=== PATIENT | male | born 1995 | race Caucasian/White ===

== ENCOUNTER 2019-08-23 21:56 | Observation (INO) | payer SELFPAY ==
[~2019-08-23] VITALS: Ht 177.8 cm; Wt 81.6 kg
--- NOTE | 2019-08-23 23:22 | PHYS DOC ---
Past Medical History Past Medical History: Unknown Alcohol Use: Heavy Drug Use: Other Social History Narrative: DENIES DRUG USE; SUSPECTED CURRENTLY UNDER INFLUENCE OF DRUGS/ETOH Adult General Chief Complaint Chief Complaint: WEAKNESS/GENERALIZED HPI HPI 24-year-old male presents to the ED via EMS initial complaints of found on the floor at the [facility]. Per EMS patient was oriented at that time. He reported having some beer prior to their arrival. Patient is sleepy on exam difficulty answering some questions. Blood sugar was 70 per EMS. Initially patient declined transport however sister states she wanted him transported for further evaluation. Patient does not answer my questions on examination. He states he did not drink any beer, has not taken any other drugs. Unable to complete reviews of systems due to altered mental status Review of Systems Review of Systems Unable to complete ROS 12/25 patient's mental status All other systems were reviewed and found to be within normal limits, except as documented in this note. Allergies Allergies Allergies Coded Allergies Type Severity Reaction Last Updated Verified No Known Drug Allergies 08/23/19 No Physical Exam Physical Exam Constitutional: Well developed, well nourished, no acute distress, non-toxic appearance. [] HENT: Normocephalic, atraumatic, bilateral external ears normal, oropharynx moist, no oral exudates, nose normal. [] Eyes: PERRLA, EOMI, conjunctiva normal, no discharge. [] Cardiovascular:Heart rate regular rhythm, no murmur [] Lungs & Thorax: Bilateral breath sounds clear to auscultation [] Abdomen: Bowel sounds normal, soft, no tenderness, no masses, no pulsatile masses. [] Skin: Warm, dry, no erythema, no rash. [] Extremities: No tenderness, no cyanosis, no edema. [] Neurologic: Alert and oriented X person/place, no focal deficits noted. [] Psychologic: flat affect, abnormal judgement Current Patient Data Vital Signs Vital Signs Date Time Temp Pulse Resp B/P (MAP) Pulse Ox O2 Delivery O2 Flow Rate FiO2 08/23/19 22:00 95.7 63 18 125/74 (91) 100 Room Air 95.7 EKG EKG [] Radiology/Procedures Radiology/Procedures [] Course & Med Decision Making Course & Med Decision Making Pertinent Labs and Imaging studies reviewed. (See chart for details) []24-year-old male presents to the ED via EMS initial complaints of found on the floor at the [facility]. Per EMS patient was oriented at that time. He reported having some beer prior to their arrival. Patient is sleepy on exam difficulty answering some questions. Blood sugar was 70 per EMS. Initially patient declined transport however sister states she wanted him transported for further evaluation. Patient does not answer my questions on examination. He states he did not drink any beer, has not taken any other drugs. Unable to complete reviews of systems due to altered mental status Dragon Disclaimer Dragon Disclaimer This electronic medical record was generated, in whole or in part, using a voice recognition dictation system. Departure Departure Referrals: NO PCP (PCP) GENEVA SOTO MD Aug 23, 2019 23:22
[2019-08-23 23:39] LABS: BASO % 0 % (0-3); EOS # 0.1 x10^3/uL (0.0-0.7); EOS % 1 % (0-3); HEMATOCRIT 46.7 % (39.0-53.0); HEMOGLOBIN 15.9 g/dL (13.0-17.5); LYMPH % 16 % (24-48); MEAN CORPUSCULAR HEMOGLOBIN 31 pg (25-35); MEAN CORPUSCULAR HGB CONC 34 g/dL (31-37); MEAN CORPUSCULAR VOLUME 90 fL (79-100); MONO # 0.5 x10^3/uL (0.0-1.1); MONO % 8 % (0-9); NEUT # 4.5 x10^3/uL (1.8-7.7); NEUT % 75 % (31-73); PLATELET COUNT 193 x10^3/uL (140-400); RED CELL DISTRIBUTION WIDTH 13.7 % (11.5-14.5); WHITE BLOOD COUNT 6.1 x10^3/uL (4.0-11.0)
[2019-08-23 23:48] LABS: CALCIUM 9.4 mg/dL (8.5-10.1); GFR 92.6; POTASSIUM 3.4 mmol/L (3.5-5.1)
--- NOTE | 2019-08-23 23:49 | PHYS DOC ---
Past Medical History Past Medical History: Unknown Alcohol Use: Heavy Drug Use: Other Social History Narrative: DENIES DRUG USE; SUSPECTED CURRENTLY UNDER INFLUENCE OF DRUGS/ETOH Adult General Chief Complaint Chief Complaint: WEAKNESS/GENERALIZED HPI HPI 21-year-old male presents to the emergency department with complaints of left abdominal pain. She describes off and on, she as well describes dizziness, nausea, vomiting or diarrhea, she does complain of dysuria as well as frequency. She is febrile here. Temperature is 100.8. Patient denies any headache, chest pain, shortness of breath. Nothing makes her symptoms worse, nothing makes her symptoms better. Review of Systems Review of Systems Constitutional: Chills, fever Eyes: Denies change in visual acuity, redness, or eye pain [] HENT: Denies nasal congestion or sore throat [] Respiratory: Denies cough or shortness of breath [] Cardiovascular: No additional information not addressed in HPI [] GI: Positive abdominal pain, nausea, vomiting, no bloody stools or diarrhea [] : Positive frequency, dysuria Musculoskeletal: Denies back pain or joint pain [] Integument: Denies rash or skin lesions [] Neurologic: Denies headache, focal weakness or sensory changes [] All other systems were reviewed and found to be within normal limits, except as documented in this note. Allergies Allergies Allergies Coded Allergies Type Severity Reaction Last Updated Verified No Known Drug Allergies 08/23/19 No Physical Exam Physical Exam Constitutional: Well developed, well nourished, mild distress due to pain, non- toxic appearance. [] HENT: Normocephalic, atraumatic, bilateral external ears normal, oropharynx moist, no oral exudates, nose normal. [] Eyes: PERRLA, EOMI, conjunctiva normal, no discharge. [] Neck: Normal range of motion, no tenderness, supple, no stridor. [] Cardiovascular: Tachycardia Lungs & Thorax: Bilateral breath sounds clear to auscultation [] Abdomen: Tender to palpation left lower abdomen, no masses, no pulsatile masses. [] Skin: Warm, dry, no erythema, no rash. [] Back: No tenderness, no CVA tenderness. [] Extremities: No tenderness, no cyanosis, no edema. [] Neurologic: Alert and oriented X 3, no focal deficits noted. [] Psychologic: Affect normal, judgement normal, mood normal. [] Current Patient Data Vital Signs Vital Signs Date Time Temp Pulse Resp B/P (MAP) Pulse Ox O2 Delivery O2 Flow Rate FiO2 08/23/19 22:00 95.7 63 18 125/74 (91) 100 Room Air 95.7 Lab Values Laboratory Tests Test 08/23/19 23:23 08/23/19 23:30 Glucose (Fingerstick) 111 mg/dL (70-99) H White Blood Count 6.1 x10^3/uL (4.0-11.0) Red Blood Count 5.20 x10^6/uL (4.30-5.70) Hemoglobin 15.9 g/dL (13.0-17.5) Hematocrit 46.7 % (39.0-53.0) Mean Corpuscular Volume 90 fL (79-100) Mean Corpuscular Hemoglobin 31 pg (25-35) Mean Corpuscular Hemoglobin Concent 34 g/dL (31-37) Red Cell Distribution Width 13.7 % (11.5-14.5) Platelet Count 193 x10^3/uL (140-400) Neutrophils (%) (Auto) 75 % (31-73) H Lymphocytes (%) (Auto) 16 % (24-48) L Monocytes (%) (Auto) 8 % (0-9) Eosinophils (%) (Auto) 1 % (0-3) Basophils (%) (Auto) 0 % (0-3) Neutrophils # (Auto) 4.5 x10^3/uL (1.8-7.7) Lymphocytes # (Auto) 1.0 x10^3/uL (1.0-4.8) Monocytes # (Auto) 0.5 x10^3/uL (0.0-1.1) Eosinophils # (Auto) 0.1 x10^3/uL (0.0-0.7) Basophils # (Auto) 0.0 x10^3/uL (0.0-0.2) Sodium Level 143 mmol/L (136-145) Potassium Level 3.4 mmol/L (3.5-5.1) L Chloride Level 101 mmol/L (98-107) Carbon Dioxide Level 31 mmol/L (21-32) Anion Gap 11 (6-14) Blood Urea Nitrogen 18 mg/dL (8-26) Creatinine 1.0 mg/dL (0.7-1.3) Estimated GFR (Cockcroft-Gault) 92.6 BUN/Creatinine Ratio 18 (6-20) Glucose Level 99 mg/dL (70-99) Calcium Level 9.4 mg/dL (8.5-10.1) Total Bilirubin Pending Aspartate Amino Transferase (AST) Pending Alanine Aminotransferase (ALT) Pending Alkaline Phosphatase Pending Total Protein Pending Albumin Pending Albumin/Globulin Ratio Pending Laboratory Tests 08/23/19 23:30 Laboratory Tests 08/23/19 23:30 EKG EKG [] Radiology/Procedures Radiology/Procedures [] Course & Med Decision Making Course & Med Decision Making Pertinent Labs and Imaging studies reviewed. (See chart for details) []21-year-old male presents to the emergency department with complaints of left abdominal pain. She describes off and on, she as well describes dizziness, nausea, vomiting or diarrhea, she does complain of dysuria as well as frequency. She is febrile here. Temperature is 100.8. Patient denies any headache, chest pain, shortness of breath. Nothing makes her symptoms worse, nothing makes her symptoms better. Labs reviewed as 20,000, UTI evident on urinalysis. Urine CG is negative. CT scan pending to rule out evidence of pyelonephritis. Dragon Disclaimer Dragon Disclaimer This electronic medical record was generated, in whole or in part, using a voice recognition dictation system. Departure Departure Referrals: NO PCP (PCP) GENEVA SOTO MD Aug 23, 2019 23:49
[2019-08-23 23:52] LABS: ACETAMIN < 2 mcg/ml (10-30); ETHANOL < 10 mg/dL (0-10); SALIC < 2.8 mg/dL (2.8-20.0)
[2019-08-23 23:53] LABS: ALBUMIN 4.4 g/dL (3.4-5.0); ALBUMIN/GLOBULIN RATIO 1.3 (1.0-1.7); TOTAL PROTEIN 7.9 g/dL (6.4-8.2)
--- NOTE | 2019-08-23 23:54 | PHYS DOC ---
Past Medical History Past Medical History: Unknown Alcohol Use: Heavy Drug Use: Other Social History Narrative: DENIES DRUG USE; SUSPECTED CURRENTLY UNDER INFLUENCE OF DRUGS/ETOH Adult General Chief Complaint Chief Complaint: WEAKNESS/GENERALIZED HPI HPI 24-year-old male presents to the ED via EMS initial complaints of found on the floor at the [facility]. Per EMS patient was oriented at that time. He reported having some beer prior to their arrival. Patient is sleepy on exam difficulty answering some questions. Blood sugar was 70 per EMS. Initially patient declined transport however sister states she wanted him transported for further evaluation. Patient does not answer my questions on examination. He states he did not drink any beer, has not taken any other drugs. Unable to complete reviews of systems due to altered mental status Review of Systems Review of Systems Unable to complete ROS / patient's mental status All other systems were reviewed and found to be within normal limits, except as documented in this note. Allergies Allergies Allergies Coded Allergies Type Severity Reaction Last Updated Verified No Known Drug Allergies 08/23/19 No Physical Exam Physical Exam Constitutional: Well developed, well nourished, no acute distress, non-toxic appearance. [] HENT: Normocephalic, atraumatic, bilateral external ears normal, oropharynx moist, no oral exudates, nose normal. [] Eyes: PERRLA, EOMI, conjunctiva normal, no discharge. [] Cardiovascular:Heart rate regular rhythm, no murmur [] Lungs & Thorax: Bilateral breath sounds clear to auscultation [] Abdomen: Bowel sounds normal, soft, no tenderness, no masses, no pulsatile masses. [] Skin: Warm, dry, no erythema, no rash. [] Extremities: No tenderness, no cyanosis, no edema. [] Neurologic: Alert and oriented X person/place, no focal deficits noted. [] Psychologic: flat affect, abnormal judgement Current Patient Data Vital Signs Vital Signs Date Time Temp Pulse Resp B/P (MAP) Pulse Ox O2 Delivery O2 Flow Rate FiO2 08/23/19 22:00 95.7 63 18 125/74 (91) 100 Room Air 95.7 Lab Values Laboratory Tests Test 08/23/19 23:23 08/23/19 23:30 08/23/19 23:40 Glucose (Fingerstick) 111 mg/dL (70-99) H White Blood Count 6.1 x10^3/uL (4.0-11.0) Red Blood Count 5.20 x10^6/uL (4.30-5.70) Hemoglobin 15.9 g/dL (13.0-17.5) Hematocrit 46.7 % (39.0-53.0) Mean Corpuscular Volume 90 fL (79-100) Mean Corpuscular Hemoglobin 31 pg (25-35) Mean Corpuscular Hemoglobin Concent 34 g/dL (31-37) Red Cell Distribution Width 13.7 % (11.5-14.5) Platelet Count 193 x10^3/uL (140-400) Neutrophils (%) (Auto) 75 % (31-73) H Lymphocytes (%) (Auto) 16 % (24-48) L Monocytes (%) (Auto) 8 % (0-9) Eosinophils (%) (Auto) 1 % (0-3) Basophils (%) (Auto) 0 % (0-3) Neutrophils # (Auto) 4.5 x10^3/uL (1.8-7.7) Lymphocytes # (Auto) 1.0 x10^3/uL (1.0-4.8) Monocytes # (Auto) 0.5 x10^3/uL (0.0-1.1) Eosinophils # (Auto) 0.1 x10^3/uL (0.0-0.7) Basophils # (Auto) 0.0 x10^3/uL (0.0-0.2) Sodium Level 143 mmol/L (136-145) Potassium Level 3.4 mmol/L (3.5-5.1) L Chloride Level 101 mmol/L (98-107) Carbon Dioxide Level 31 mmol/L (21-32) Anion Gap 11 (6-14) Blood Urea Nitrogen 18 mg/dL (8-26) Creatinine 1.0 mg/dL (0.7-1.3) Estimated GFR (Cockcroft-Gault) 92.6 BUN/Creatinine Ratio 18 (6-20) Glucose Level 99 mg/dL (70-99) Calcium Level 9.4 mg/dL (8.5-10.1) Total Bilirubin 1.0 mg/dL (0.2-1.0) Aspartate Amino Transferase (AST) 24 U/L (15-37) Alanine Aminotransferase (ALT) 24 U/L (16-63) Alkaline Phosphatase 60 U/L (46-116) Total Protein 7.9 g/dL (6.4-8.2) Albumin 4.4 g/dL (3.4-5.0) Albumin/Globulin Ratio 1.3 (1.0-1.7) Salicylates Level < 2.8 mg/dL (2.8-20.0) L Salicylate Last Dose Date Unk Salicylate Last Dose Time Unk Acetaminophen Level < 2 mcg/ml (10-30) L Acetaminophen Last Dose Date Unk Acetaminophen Last Dose Time Unk Ethyl Alcohol Level < 10 mg/dL (0-10) Urine Opiates Screen Neg (NEG) Urine Methadone Screen Neg (NEG) Urine Barbiturates Neg (NEG) Urine Phencyclidine Screen Neg (NEG) Urine Amphetamine/Methamphetamine Pos (NEG) Urine Benzodiazepines Screen Pos (NEG) Urine Cocaine Screen Neg (NEG) Urine Cannabinoids Screen Pos (NEG) Urine Ethyl Alcohol Neg (NEG) Laboratory Tests 08/23/19 23:30 Laboratory Tests 08/23/19 23:30 EKG EKG EKG reviewed, bradycardia heart rate 45, no acute ST or T wave change appreciated, no STEMI, non-urgent[] Interpretation Time: Interpretation 0010 Radiology/Procedures Radiology/Procedures [] Course & Med Decision Making Course & Med Decision Making Pertinent Labs and Imaging studies reviewed. (See chart for details) []24-year-old male presents to the ED via EMS initial complaints of found on the floor at the [facility]. Per EMS patient was oriented at that time. He reported having some beer prior to their arrival. Patient is sleepy on exam difficulty answering some questions. Blood sugar was 70 per EMS. Initially patient declined transport however sister states she wanted him transported for further evaluation. Patient does not answer my questions on examination. He states he did not drink any beer, has not taken any other drugs. Unable to complete reviews of systems due to altered mental status. Labs reviewed, white blood cell count 6.1, potassium of 3.4. UDS positive for meth/benzo/THC. Patient remains drowsy, inability to stay awake. Given urine drug screen will plan for observation for an intentional overdose, bradycardia and altered mental status. Dragon Disclaimer Dragon Disclaimer This electronic medical record was generated, in whole or in part, using a voice recognition dictation system. Departure Departure Impression: Primary Impression: Altered mental status Additional Impressions: Purposeful non-suicidal drug ingestion Bradycardia Disposition: 09 ADMITTED INPATIENT Admitting Physician: ARUNA Condition: STABLE Referrals: NO PCP (PCP) Problem Qualifiers GENEVA SOTO MD Aug 23, 2019 23:54
[2019-08-23 23:55] LABS: BARBITURATES NEG (NEG); BENZODIAZEPINES POS (NEG); CANNABINOIDS POS (NEG); COCAINE NEG (NEG); METHADONE NEG (NEG); OPIATES NEG (NEG); PHENCYCLIDINE NEG (NEG)
[2019-08-23 23:57] LABS: AMPHETAMINE/METHAMPHETAMINE POS (NEG)
[2019-08-24] MEDS ORDERED: IV NORMAL SALINE 1000ML BAG 1,000 ML IV ONE (00:30)
[2019-08-24] MEDS ORDERED: ONDANSETRON PF 4 MG/2 ML VIAL. IV PRN (00:45)
[2019-08-24 01:54] VITALS: BP 126/59
--- NOTE | 2019-08-24 02:26 | NUR ---
Pt arrived to floor at 0210 - rolled into room stating that wanted to leave. RN explained to pt that needed to sign paperwork stating that was aware of dr advice. Pt stated would sign. IV d/c'ed per JENN Suggs. PT d/c'ed at 0211. Escorted out by security and RN - pt ambulatory.
--- NOTE | 2019-08-24 07:03 | EKG ---
[facility] [address] [place] [address] Test Date: 2019-08-24 Test Time: 00:07:33 Pat Name: DAGOBERTO ROGERS Department: Room: 648 1 Gender: M Lens Blocker: : 1995 Requested By: GENEVA SOTO Order Number: [id number] Reading MD: Umer Laboy Measurements Intervals [place] Rate: 45 P: 43 DE: 166 QRS: 92 QRSD: 110 T: 67 QT: 474 QTc: 412 Interpretive Statements SINUS BRADYCARDIA RIGHTWARD AXIS NON SPECIFIC ST-T ABNORMALITY (ELEVATION) No previous ECG available for comparison Electronically Signed On 09-02-2019 15:37:58 CDT by Umer Laboy
--- NOTE | 2019-08-24 08:16 | PDOC1 ---
History and Physical Date of Admission Date of Admission DATE: 08/24/19 TIME: 08:15 Identification/Chief Complaint Chief Complaint pt not seen, laft ama early this AM Past Medical History Past Medical History Past Medical History Past Medical History Past Medical History: Unknown Alcohol Use: Heavy Drug Use: Other Social History Narrative: DENIES DRUG USE; SUSPECTED CURRENTLY UNDER INFLUENCE OF DRUGS/ETOH//meth Current Problem List Problem List Problems Medical Problems: (1) Altered mental status Status: Acute (2) Bradycardia Status: Acute (3) Purposeful non-suicidal drug ingestion Status: Acute Current Medications Current Medications Current Medications Sodium Chloride 1,000 ml @ 1,000 mls/hr 1X ONCE IV Last administered on 08/24/19at 00:17; Start 08/24/19 at 00:30; Stop 08/24/19 at 01:29; Status DC Ondansetron HCl (Zofran) 4 mg PRN Q8HRS PRN IV NAUSEA/VOMITING 1ST CHOICE; Start 08/24/19 at 00:45; Stop 08/25/19 at 00:44 Allergies Allergies: Coded Allergies: No Known Drug Allergies (Unverified , 08/23/19) Vitals Vitals Vital Signs Date Time Temp Pulse Resp B/P (MAP) Pulse Ox O2 Delivery O2 Flow Rate FiO2 08/24/19 01:54 39 14 100 08/23/19 22:00 95.7 125/74 (91) Room Air 95.7 Labs Labs Laboratory Tests Test 08/23/19 23:23 08/23/19 23:30 08/23/19 23:40 Glucose (Fingerstick) 111 mg/dL (70-99) White Blood Count 6.1 x10^3/uL (4.0-11.0) Red Blood Count 5.20 x10^6/uL (4.30-5.70) Hemoglobin 15.9 g/dL (13.0-17.5) Hematocrit 46.7 % (39.0-53.0) Mean Corpuscular Volume 90 fL (79-100) Mean Corpuscular Hemoglobin 31 pg (25-35) Mean Corpuscular Hemoglobin Concent 34 g/dL (31-37) Red Cell Distribution Width 13.7 % (11.5-14.5) Platelet Count 193 x10^3/uL (140-400) Neutrophils (%) (Auto) 75 % (31-73) Lymphocytes (%) (Auto) 16 % (24-48) Monocytes (%) (Auto) 8 % (0-9) Eosinophils (%) (Auto) 1 % (0-3) Basophils (%) (Auto) 0 % (0-3) Neutrophils # (Auto) 4.5 x10^3/uL (1.8-7.7) Lymphocytes # (Auto) 1.0 x10^3/uL (1.0-4.8) Monocytes # (Auto) 0.5 x10^3/uL (0.0-1.1) Eosinophils # (Auto) 0.1 x10^3/uL (0.0-0.7) Basophils # (Auto) 0.0 x10^3/uL (0.0-0.2) Sodium Level 143 mmol/L (136-145) Potassium Level 3.4 mmol/L (3.5-5.1) Chloride Level 101 mmol/L (98-107) Carbon Dioxide Level 31 mmol/L (21-32) Anion Gap 11 (6-14) Blood Urea Nitrogen 18 mg/dL (8-26) Creatinine 1.0 mg/dL (0.7-1.3) Estimated GFR (Cockcroft-Gault) 92.6 BUN/Creatinine Ratio 18 (6-20) Glucose Level 99 mg/dL (70-99) Calcium Level 9.4 mg/dL (8.5-10.1) Total Bilirubin 1.0 mg/dL (0.2-1.0) Aspartate Amino Transf (AST/SGOT) 24 U/L (15-37) Alanine Aminotransferase (ALT/SGPT) 24 U/L (16-63) Alkaline Phosphatase 60 U/L (46-116) Total Protein 7.9 g/dL (6.4-8.2) Albumin 4.4 g/dL (3.4-5.0) Albumin/Globulin Ratio 1.3 (1.0-1.7) Salicylates Level < 2.8 mg/dL (2.8-20.0) Salicylate Last Dose Date Unk Salicylate Last Dose Time Unk Acetaminophen Level < 2 mcg/ml (10-30) Acetaminophen Last Dose Date Unk Acetaminophen Last Dose Time Unk Ethyl Alcohol Level < 10 mg/dL (0-10) Urine Opiates Screen Neg (NEG) Urine Methadone Screen Neg (NEG) Urine Barbiturates Neg (NEG) Urine Phencyclidine Screen Neg (NEG) Urine Amphetamine/Methamphetamine Pos (NEG) Urine Benzodiazepines Screen Pos (NEG) Urine Cocaine Screen Neg (NEG) Urine Cannabinoids Screen Pos (NEG) Urine Ethyl Alcohol Neg (NEG) Laboratory Tests Test 08/23/19 23:23 08/23/19 23:30 08/23/19 23:40 Glucose (Fingerstick) 111 mg/dL (70-99) White Blood Count 6.1 x10^3/uL (4.0-11.0) Red Blood Count 5.20 x10^6/uL (4.30-5.70) Hemoglobin 15.9 g/dL (13.0-17.5) Hematocrit 46.7 % (39.0-53.0) Mean Corpuscular Volume 90 fL (79-100) Mean Corpuscular Hemoglobin 31 pg (25-35) Mean Corpuscular Hemoglobin Concent 34 g/dL (31-37) Red Cell Distribution Width 13.7 % (11.5-14.5) Platelet Count 193 x10^3/uL (140-400) Neutrophils (%) (Auto) 75 % (31-73) Lymphocytes (%) (Auto) 16 % (24-48) Monocytes (%) (Auto) 8 % (0-9) Eosinophils (%) (Auto) 1 % (0-3) Basophils (%) (Auto) 0 % (0-3) Neutrophils # (Auto) 4.5 x10^3/uL (1.8-7.7) Lymphocytes # (Auto) 1.0 x10^3/uL (1.0-4.8) Monocytes # (Auto) 0.5 x10^3/uL (0.0-1.1) Eosinophils # (Auto) 0.1 x10^3/uL (0.0-0.7) Basophils # (Auto) 0.0 x10^3/uL (0.0-0.2) Sodium Level 143 mmol/L (136-145) Potassium Level 3.4 mmol/L (3.5-5.1) Chloride Level 101 mmol/L (98-107) Carbon Dioxide Level 31 mmol/L (21-32) Anion Gap 11 (6-14) Blood Urea Nitrogen 18 mg/dL (8-26) Creatinine 1.0 mg/dL (0.7-1.3) Estimated GFR (Cockcroft-Gault) 92.6 BUN/Creatinine Ratio 18 (6-20) Glucose Level 99 mg/dL (70-99) Calcium Level 9.4 mg/dL (8.5-10.1) Total Bilirubin 1.0 mg/dL (0.2-1.0) Aspartate Amino Transf (AST/SGOT) 24 U/L (15-37) Alanine Aminotransferase (ALT/SGPT) 24 U/L (16-63) Alkaline Phosphatase 60 U/L (46-116) Total Protein 7.9 g/dL (6.4-8.2) Albumin 4.4 g/dL (3.4-5.0) Albumin/Globulin Ratio 1.3 (1.0-1.7) Salicylates Level < 2.8 mg/dL (2.8-20.0) Salicylate Last Dose Date Unk Salicylate Last Dose Time Unk Acetaminophen Level < 2 mcg/ml (10-30) Acetaminophen Last Dose Date Unk Acetaminophen Last Dose Time Unk Ethyl Alcohol Level < 10 mg/dL (0-10) Urine Opiates Screen Neg (NEG) Urine Methadone Screen Neg (NEG) Urine Barbiturates Neg (NEG) Urine Phencyclidine Screen Neg (NEG) Urine Amphetamine/Methamphetamine Pos (NEG) Urine Benzodiazepines Screen Pos (NEG) Urine Cocaine Screen Neg (NEG) Urine Cannabinoids Screen Pos (NEG) Urine Ethyl Alcohol Neg (NEG) VTE Prophylaxis Ordered VTE Prophylaxis Devices: No VTE Pharmacological Prophylaxi: No BRISA DAVIS MD Aug 24, 2019 08:16
== END 2019-08-24 02:10 | disposition left against medical advice (07) ==
LOC: ER 21:56 → 6 SOUTH 08-24 00:13
PROVIDERS: ADMIT Internal Medicine; ATTEND Internal Medicine
DX: R41.82 Altered mental status, unspecified (principal); R00.1 Bradycardia, unspecified; T50.901A Poisoning by unspecified drugs, medicaments and biological substances, accidental (unintentional), initial encounter; Y92.89 Other specified places as the place of occurrence of the external cause
CPT/HCPCS: 36415; 80053; 80307; 80329; 82962; 85025; 93005; 96360; 99284; G0378; G0480; J7030; G0379